=== PATIENT | male | born 1965 | race Caucasian/White ===

== ENCOUNTER 2020-12-29 12:04 | Emergency (ER) | payer OTHER, SELFPAY ==
[2020-12-29 12:05] VITALS: BP 184/90; PULSE 76; RESP 16; TEMP 36.2; O2SAT 100; BMI 32.6
--- NOTE | 2020-12-29 12:44 | ED_ITS ---
HPI - Ear Problem <CHIO Robison - Last Filed: 12/29/20 15:56> General Chief complaint: Ear Stated complaint: water in left ear Time Seen by Provider: 12/29/20 12:10 Source: patient Mode of arrival: Ambulatory Limitations: no limitations History of Present Illness HPI Narrative: 55-year-old male presents with feeling of ?water in ear? to left ear for the last 3 days. He reports that he has been trying to get it out using Q-tips, sleeping on his left side, trying to ?pop ?his ears, and has not had any luck so far he reports that he has had some drainage on his pillow in the mor t[place] a couple times, it was non odorous, and clear. He denies any recent illnesses, fever, congestion, any seasonal allergies, denies any cough or runny nose. Patient works on a [place] in denies any recent soaking in water, he reports that this is likely from a shower, he has a small abrasion on the bottom of his ear he reports from accidentally scratching himself while cleaning his ear. Related Data Previous Rx's Medication Instructions Recorded acetic acid 2 % ear solution 3 drp EAR-LEFT Q6H 3 Days #15 ml 12/29/20 fluticasone propionate 50 2 spray INTRANASAL DAILY #16 g 12/29/20 mcg/actuation nasal spray,suspension (Flonase Allergy Relief) methylprednisolone 4 mg tablets in See Rx Instructions .ROUTE 12/29/20 a dose pack (Methylpred DP) .COMPLEX #21 ea Allergies Allergy/AdvReac Type Severity Reaction Status Date / Time Penicillins Allergy Unknown Verified 12/29/20 12:21 Review of Systems <CHIO Robison - Last Filed: 12/29/20 15:56> Review of Systems Narrative: General: denies fever, chills Head/Neck: denies headache, neck pain Eyes: denies visual changes, eye pain Ears: Denies pain to the outer ear, reports feeling water on the inside of his left ear. Denies ear pain Cardio: denies chest pain, palpitations Respiratory: denies shortness of breath, cough GI: denies abdominal pain, nausea, vomiting, or diarrhea : denies dysuria, hematuria MSK: denies joint pain, muscle weakness Skin: denies rash, itching Neuro: denies numbness, tingling Patient History <CHIO Robison - Last Filed: 12/29/20 15:56> Social History Smoking Status: Never smoker Smoking Status: Never smoker alcohol intake frequency: 0-2 drinks per day Substance Use Type: does not use Exam <CHIO Robison - Last Filed: 12/29/20 15:56> Narrative Exam Narrative: Independently reviewed vitals signs and nursing notes. General: Awake, alert, nontoxic, no cardiorespiratory distress Head/Neck: Atraumatic, neck full range of motion Eyes: EOMI, conjunctiva normal Ears: Abrasion to left lower lobe of pinna, patient states that he scratched his ear. Left TM pearly carrizales with light reflex, no bulging of TM, canal with erythema, no wax buildup. Right TM pearly carrizales with positive light reflex, no bulging TM, canal is nonerythematous. Nose: nares patent, no rhinorrhea Mouth/Throat: moist mucus membranes, posterior pharynx normal, no oral lesions Cardio: Regular rate and rhythm, no peripheral edema Respiratory: respirations unlabored without wheezing, stridor, or rales. No retractions. GI: Abdomen soft, nontender MSK: Moves all extremities, neurovascularly intact Skin: Normal capillary refill, no rash Neuro: Normal speech and cognition, normal gait Initial Vital Signs Initial Vital Signs: Vital Signs Temperature 97.1 F L 12/29/20 12:05 Pulse Rate 76 12/29/20 12:05 Respiratory Rate 16 12/29/20 12:05 Blood Pressure 184/90 H 12/29/20 12:05 Pulse Oximetry 100 12/29/20 12:05 <Betsey Mahan DO - Last Filed: 12/30/20 07:01> Initial Vital Signs Initial Vital Signs: Vital Signs Temperature 97.1 F L 12/29/20 12:05 Pulse Rate 76 12/29/20 12:05 Respiratory Rate 16 12/29/20 12:05 Blood Pressure 184/90 H 12/29/20 12:05 Pulse Oximetry 100 12/29/20 12:05 Course <CHIO Robison - Last Filed: 12/29/20 15:56> Vital Signs Vital signs: Vital Signs - 8 hr 12/29/20 12:05 Temperature 97.1 F L Pulse Rate 76 Respiratory Rate 16 Blood Pressure 184/90 H Pulse Oximetry 100 <Betsey Mahan DO - Last Filed: 12/30/20 07:01> Vital Signs Vital signs: Vital Signs - 8 hr 12/29/20 12:05 Temperature 97.1 F L Pulse Rate 76 Respiratory Rate 16 Blood Pressure 184/90 H Pulse Oximetry 100 Medical Decision Making <CHIO Robison - Last Filed: 12/29/20 15:56> MDM Narrative Medical decision making narrative: 55-year-old male presents the ED with feeling of water in left ear for 2 or 3 days. He denies any fevers, congestion, illnesses. Reports that the water was from a shower. His tried popping his ears with no relief. He has been trying to clean his ears with Q-tips to get it out. This is most likely eustachian tube dysfunction, or otitis externa as a possibility. This is not appear like otitis externa as patient was trying to get water out of his ear with Q-tips, and why his ear canal is erythematous. Patient does not have any dizziness, lightheadedness, vertigo, congestion, sorethroat or hearing changes. Patient is appropriate and amenable to discharge home. Vital signs are stable on repeat examination is unremarkable. Patient has been informed of results. Patient has been given strict return to ER precautions for any new or worsening symptoms. Patient understands to follow up closely with outpatient providers as instructed. Patient understands plan and agrees to discharge home. All questions and concerns answered at this time. Discharge Plan Departure Patient Disposition: Home Clinical Impression: Eustachian tube dysfunction Qualifiers: Laterality: left Qualified Code(s): H69.82 - Other specified disorders of Eustachian tube, left ear Instructions: Eustachian Tube Dysfunction Activity Restrictions/Additional Instructions: *You have been diagnosed with eustachian tube dysfunction of your left ear. Take the steroid pills as the package describes, use 1 spray in each nare 1 to 2 times a day until your symptoms go away. Take ibuprofen or Tylenol for any congestion related pain. *What to do: *Please continue to take your regular medications as directed. [x ] New medication prescriptions sent to your pharmacy: [[facility] [place]] [ ] New medication written as a paper prescription [ ] No new medications given *Please follow up with your primary care provider in 2-3 days, call for an appointment. Let them know you were seen in the Emergency Department and that we ask that you be seen in follow up. We will electronically transmit a record of today's note if your PCP is in our system *If you do not have a primary care provider please contact the [facility] Resource line at [phone]. They will ask some questions about your medical history and help get you set up with a doctor in the community. *Return to Emergency Department if you should have any new, worsening or concerning symptoms, such as [fever greater than 101F, chills, worsening pain, persistent vomiting or other bothersome symptoms] Prescriptions: New fluticasone propionate [Flonase Allergy Relief] 50 mcg/actuation spray,suspension 2 spray intranasal DAILY Qty: 16 RF: 0 methylprednisolone [Methylpred DP] 4 mg tablets,dose pack See Rx Instructions .ROUTE .COMPLEX Qty: 21 RF: 0 acetic acid 2 % solution 3 drp EAR-LEFT Q6H 3 Days Qty: 15 RF: 0 <Betsey Mahan DO - Last Filed: 12/30/20 07:01> [facility] ED Attending Spature Attestation: I was immediately available in the department for consultation. Documentation has been reviewed. I agree with assessment and plan.
== END 2020-12-29 12:54 | disposition home or self-care (01) ==
PROVIDERS: Emergency Provider Nurse Practitioner Critical Care Medicine
DX: H69.82 Other specified disorders of Eustachian tube, left ear (principal)
CPT/HCPCS: 99281